=== PATIENT | female | born 1980 | race Caucasian/White ===

== ENCOUNTER 2025-01-01 11:14 | Emergency (ER) | payer OTHER ==
[~2025-01-01] VITALS: Ht 152.4 cm; Wt 76.0 kg
[2025-01-01 11:22] VITALS: TEMP 98.1
[2025-01-01] MEDS ORDERED: PERCT PO (12:20)
[2025-01-01] MEDS ORDERED: IBUP-1492 PO (12:20)
[2025-01-01] MEDS: CEPHALEXIN MONOHYDRATE 500 MG CAPSULE PO ONE (12:26)
[2025-01-01] MEDS: PERTUSS(ACELL),DIPH,TET/PF 0.5 ML SYRINGE [ADULT] IM. ONE (12:27)
[2025-01-01] MEDS ORDERED: CEPH-558 PO (13:12)
[2025-01-01 13:13] VITALS: BP 121/65; PULSE 72; RESP 18; O2SAT 98
== END 2025-01-01 13:14 | disposition home or self-care (01) ==
LOC: EMS 11:14
DX: S92.421B Displaced fracture of distal phalanx of right great toe, initial encounter for open fracture (principal); W22.8XXA Striking against or struck by other objects, initial encounter; Y93.89 Activity, other specified; Y92.89 Other specified places as the place of occurrence of the external cause; Y99.8 Other external cause status
CPT/HCPCS: 90471; 90715; 99283